=== PATIENT | male | born 2000 | race Caucasian/White ===

== ENCOUNTER → 2019-02-27 | Outpatient (CLI) | payer OTHER ==
[~2019-02-27] VITALS: Ht 175.3 cm; Wt 63.5 kg
[2019-02-27 14:38] VITALS: BP 122/55
[2019-02-27 14:42] VITALS: BP 122/55
== END ==
LOC: M.INT 14:00
DX: M79.89 Other specified soft tissue disorders (principal)

== ENCOUNTER → 2019-03-03 | Outpatient (CLI) | payer OTHER | LOC: M.ULTRA 09:30 | DX: K11.8 Other diseases of salivary glands (principal); R51 Headache ==